=== PATIENT | female | born 1990 | race African-American/Black ===

== ENCOUNTER 2018-03-13 02:16 | Emergency (ER) | payer OTHER ==
[~2018-03-13] VITALS: Ht 165.1 cm; Wt 85.0 kg
[2018-03-13] MEDS ORDERED: ACETAMINOPHEN WITH CODEINE 300/30MG TABLET PO ONE (03:30)
[2018-03-13 05:13] VITALS: BP 95/60
== END 2018-03-13 05:19 | disposition home or self-care (01) ==
LOC: ER 02:16
DX: L03.116 Cellulitis of left lower limb (principal); I10 Essential (primary) hypertension; R51 Headache; Z88.0 Allergy status to penicillin
CPT/HCPCS: 81025; 93971; 99284; Z7610